=== PATIENT | male | born 1955 | race Caucasian/White ===

== ENCOUNTER 2018-06-02 16:33 | Observation (INO) | payer OTHER ==
--- NOTE | 2018-06-02 18:24 | ER ---
Nurse's Notes [facility] Name: Meet Epperson Age: 62 yrs Sex: Male : 1955 Arrival Date: 06/02/2018 Time: 16:37 Bed 27 Private MD: None, None Diagnosis: Essential (primary) hypertension;Headache Presentation: 06/02 17:17 Presenting complaint: Patient states: Headache for 2 weeks. Pt state "I checked my aa5 blood pressure at [facility] today and it was 211/120". Pt also reports nausea, dizziness, and blurry vision. Transition of care: patient was not received from another setting of care. Onset of symptoms was April 2018. Risk Assessment: Do you want to hurt yourself or someone else? Patient reports no desire to harm self or others. Initial Sepsis Screen: Does the patient meet any 2 criteria? No. Patient's initial sepsis screen is negative. Does the patient have a suspected source of infection? No. Patient's initial sepsis screen is negative. Care prior to arrival: None. 17:17 Method Of Arrival: Ambulatory aa5 17:17 Acuity: WAYNE 3 aa5 Triage Assessment: 20:31 Headache History: The patient has had previous headaches and this one is similar to mg2 previous episodes. General: Appears in no apparent distress. comfortable, Behavior is calm, cooperative. Pain: Also complains of no other associated symptoms. Pain: Complains of pain in head and chest. Historical: - Allergies: 17:19 Sulfa (Sulfonamide Antibiotics); aa5 - Home Meds: 17:19 Simvastatin Oral [Active]; diclofenac oral oral [Active]; Tramadol Oral [Active]; aa5 - PMHx: 17:19 Arthritis; Pneumonia; aa5 - PSHx: 17:19 left knee; aa5 - Immunization history:: Flu vaccine is up to date. - Social history:: Smoking status: Patient/guardian denies using tobacco. - Ebola Screening: : No symptoms or risks identified at this time. Screenin:30 Abuse screen: Denies threats or abuse. Denies injuries from another. Nutritional mg2 screening: No deficits noted. Tuberculosis screening: No symptoms or risk factors identified. Fall Risk IV access (20 points). Assessment: 20:28 General: Appears in no apparent distress. comfortable, Behavior is calm, cooperative. mg2 Pain: Complains of pain in head Pain does not radiate. Pain currently is 3 out of 10 on a pain scale. Quality of pain is described as aching, Pain began gradually. Neuro: Level of Consciousness is awake, alert, obeys commands, Oriented to person, place, time, situation, Reports headache. Cardiovascular: Capillary refill < 3 seconds Patient's skin is warm and dry. Respiratory: Airway is patent Respiratory effort is even, unlabored, Respiratory pattern is regular, symmetrical. GI: No signs and/or symptoms were reported involving the gastrointestinal system. : No signs and/or symptoms were reported regarding the genitourinary system. EENT: Reports blurred vision. Derm: Skin is intact, is healthy with good turgor, Skin is pink, warm \\T\\ dry. normal. Musculoskeletal: Circulation, motion, and sensation intact. Capillary refill < 3 seconds. 20:49 Reassessment: report called to Alicia MASON for room 407. bb Vital Signs: 17:20 BP 173 / 116; Pulse 77; Resp 18 S; Temp 97.8(TE); Pulse Ox 97% on R/A; Weight 96.16 kg aa5 (R); Height 6 ft. 2 in. (187.96 cm) (R); Pain 10/10; 17:47 BP 162 / 108; Pulse 69; Resp 18; Pulse Ox 98% on R/A; Pain 8/10; mg2 20:31 BP 144 / 96; Pulse 87; Resp 18; Temp 98; Pulse Ox 99% on R/A; Pain 2/10; mg2 21:10 BP 129 / 80; Pulse 82; Resp 18; Pulse Ox 100% on R/A; Pain 0/10; mg2 17:20 Body Mass Index 27.22 (96.16 kg, 187.96 cm) aa5 ED Course: 16:37 Patient arrived in ED. mr 16:38 None, None is Private Physician. mr 17:10 Arm band placed on. aa5 17:18 Triage completed. aa5 17:23 Pritesh Brown MD is Attending Physician. saran 17:34 Yann Olson, MARLON is Primary Nurse. mg2 18:21 CT Head Brain wo Cont In Process Unspecified. EDMS 18:21 Sarah Coe MD is Hospitalizing Provider. saran 19:09 XRAY Chest (1 view) In Process Unspecified. EDMS 20:30 Patient has correct armband on for positive identification. Bed in low position. Call mg2 light in reach. Side rails up X 1. air sampling and monitoring on. Pulse ox on. NIBP on. Door closed. 20:30 No provider procedures requiring assistance completed. Inserted saline lock: 20 gauge mg2 in right antecubital area, using aseptic technique. Blood collected. 20:50 Patient admitted, IV remains in place. bb Administered Medications: 19:40 Drug: Norvasc 10 mg Route: PO; mg2 20:40 Follow up: Response: No adverse reaction; Blood pressure is lowered mg2 19:40 Drug: fentaNYL (PF) 25 mcg Route: IVP; Site: right antecubital; mg2 20:40 Follow up: Response: No adverse reaction; Marked relief of symptoms mg2 19:41 Drug: NS 0.9% 1000 ml Route: IV; Rate: 75 ml/hr; Site: right antecubital; mg2 21:00 Follow up: Response: No adverse reaction; IV Status: Infusion continued upon admission mg2 19:41 Drug: Enalaprilat 2.5 mg Route: IV; Rate: per protocol; Site: right antecubital; mg2 20:40 Follow up: Response: No adverse reaction; Blood pressure is lowered; IV Status: mg2 Completed infusion 19:41 Drug: Zofran 4 mg Route: IVP; Site: right antecubital; mg2 21:10 Follow up: Response: No adverse reaction; Marked relief of symptoms mg2 20:21 Drug: Aspirin 81 mg Route: PO; mg2 0204 00:06 Follow up: Response: No adverse reaction mg2 03 20:21 Drug: fentaNYL (PF) 25 mcg Route: IVP; Site: right antecubital; mg2 21:10 Follow up: Response: No adverse reaction; Pain is decreased mg2 20:21 Drug: hydrALAZINE 5 mg Route: IV; Rate: per protocol; Site: right antecubital; mg2 21:10 Follow up: Response: No adverse reaction; Blood pressure is lowered; IV Status: mg2 Completed infusion 20:21 Drug: hydrALAZINE 10 mg Route: PO; mg2 21:10 Follow up: Response: No adverse reaction; Blood pressure is lowered mg2 20:22 Drug: Lisinopril 10 mg Route: PO; mg2 21:10 Follow up: Response: No adverse reaction; Blood pressure is lowered mg2 Outcome: 18:22 Decision to Hospitalize by Provider. saran 20:49 Admitted to Tele accompanied by tech, via wheelchair, room 407, with chart, Report bb called to Alicia MASON 20:49 Condition: stable 20:49 Instructed on the need for admit. 21:12 Patient left the ED. mg2 Signatures: Dispatcher [employer] Pritesh Khan MD MD cha Rivera, Roslyn mr Shayla Vasquez, RN RN bb Shelly Nieves, MARLON RN aa5 Yann Olson RN RN mg2
--- NOTE | 2018-06-02 18:24 | EDPHYS ---
Physician Documentation [facility] Name: Meet Epperson Age: 62 yrs Sex: Male : 1955 Arrival Date: 06/02/2018 Time: 16:37 Bed 27 Private MD: None, None ED Physician Pritesh Brown HPI: 06/02 18:18 This 62 yrs old Male presents to ER via Ambulatory with complaints of High saran Blood Pressure, Headache, Vision Problem. 18:18 The patient has elevated blood pressure and discovered this at home. Onset: The saran symptoms/episode began/occurred 2 day(s) ago. Modifying factors: The symptoms are aggravated by. Associated signs and symptoms: Pertinent positives: headache. Severity of symptoms: At its worst the blood pressure was moderate. The patient has experienced similar episodes in the past, a few times. Historical: - Allergies: 17:19 Sulfa (Sulfonamide Antibiotics); aa5 - Home Meds: 17:19 Simvastatin Oral [Active]; diclofenac oral oral [Active]; Tramadol Oral [Active]; aa5 - PMHx: 17:19 Arthritis; Pneumonia; aa5 - PSHx: 17:19 left knee; aa5 - Immunization history:: Flu vaccine is up to date. - Social history:: Smoking status: Patient/guardian denies using tobacco. - Ebola Screening: : No symptoms or risks identified at this time. ROS: 18:20 Constitutional: Negative for fever, chills, and weight loss, Eyes: Negative for injury, saran pain, redness, and discharge, ENT: Negative for injury, pain, and discharge, Neck: Negative for injury, pain, and swelling, Cardiovascular: Negative for chest pain, palpitations, and edema, Respiratory: Negative for shortness of breath, cough, wheezing, and pleuritic chest pain, Abdomen/GI: Negative for abdominal pain, nausea, vomiting, diarrhea, and constipation, Back: Negative for injury and pain, : Negative for injury, bleeding, discharge, and swelling, MS/Extremity: Negative for injury and deformity, Skin: Negative for injury, rash, and discoloration, Psych: Negative for depression, anxiety, suicide ideation, homicidal ideation, and hallucinations, Allergy/Immunology: Negative for hives, rash, and allergies, Endocrine: Negative for neck swelling, polydipsia, polyuria, polyphagia, and marked weight changes, Hematologic/Lymphatic: Negative for swollen nodes, abnormal bleeding, and unusual bruising. 18:20 Neuro: Positive for headache. Exam: 18:20 Constitutional: This is a well developed, well nourished patient who is awake, alert, saran and in no acute distress. Head/Face: Normocephalic, atraumatic. Eyes: Pupils equal round and reactive to light, extra-ocular motions intact. Lids and lashes normal. Conjunctiva and sclera are non-icteric and not injected. Cornea within normal limits. Periorbital areas with no swelling, redness, or edema. ENT: Nares patent. No nasal discharge, no septal abnormalities noted. Tympanic membranes are normal and external auditory canals are clear. Oropharynx with no redness, swelling, or masses, exudates, or evidence of obstruction, uvula midline. Mucous membranes moist. Neck: Trachea midline, no thyromegaly or masses palpated, and no cervical lymphadenopathy. Supple, full range of motion without nuchal rigidity, or vertebral point tenderness. No Meningismus. Chest/axilla: Normal chest wall appearance and motion. Nontender with no deformity. No lesions are appreciated. Cardiovascular: Regular rate and rhythm with a normal S1 and S2. No gallops, murmurs, or rubs. Normal PMI, no JVD. No pulse deficits. Respiratory: Lungs have equal breath sounds bilaterally, clear to auscultation and percussion. No rales, rhonchi or wheezes noted. No increased work of breathing, no retractions or nasal flaring. Abdomen/GI: Soft, non-tender, with normal bowel sounds. No distension or tympany. No guarding or rebound. No evidence of tenderness throughout. Back: No spinal tenderness. No costovertebral tenderness. Full range of motion. Male : Normal genitalia with no discharge or lesions. Skin: Warm, dry with normal turgor. Normal color with no rashes, no lesions, and no evidence of cellulitis. MS/ Extremity: Pulses equal, no cyanosis. Neurovascular intact. Full, normal range of motion. Neuro: Awake and alert, GCS 15, oriented to person, place, time, and situation. Cranial nerves II-XII grossly intact. Motor strength 5/5 in all extremities. Sensory grossly intact. Cerebellar exam normal. Normal gait. Psych: Awake, alert, with orientation to person, place and time. Behavior, mood, and affect are within normal limits. 18:20 Neck: External neck: is normal, no acute changes. saran 18:20 Musculoskeletal/extremity: DVT Exam: No signs of deep vein thrombosis. no pain, no swelling, no tenderness, negative Homans' sign noted on exam, no appreciated bluish discoloration, no erythema, no increased warmth. Vital Signs: 17:20 BP 173 / 116; Pulse 77; Resp 18 S; Temp 97.8(TE); Pulse Ox 97% on R/A; Weight 96.16 kg aa5 (R); Height 6 ft. 2 in. (187.96 cm) (R); Pain 10/10; 17:47 BP 162 / 108; Pulse 69; Resp 18; Pulse Ox 98% on R/A; Pain 8/10; mg2 20:31 BP 144 / 96; Pulse 87; Resp 18; Temp 98; Pulse Ox 99% on R/A; Pain 2/10; mg2 21:10 BP 129 / 80; Pulse 82; Resp 18; Pulse Ox 100% on R/A; Pain 0/10; mg2 17:20 Body Mass Index 27.22 (96.16 kg, 187.96 cm) aa5 MDM: 17:23 Patient medically screened. [facility] 18:25 Data reviewed: vital signs, nurses notes, lab test result(s), EKG, radiologic studies, [facility] CT scan, plain films. 06/02 17:50 Order name: Basic Metabolic Panel; Complete Time: 19:52 [facility] 06/02 17:50 Order name: CBC with Diff; Complete Time: 19:43 [facility] 06/02 17:50 Order name: LFT's; Complete Time: 19:52 [facility] 06/02 17:50 Order name: Magnesium; Complete Time: 19:52 [facility] 06/02 17:50 Order name: NT PRO-BNP; Complete Time: 19:52 [facility] 06/02 17:50 Order name: PT-INR; Complete Time: 19:43 [facility] 06/02 17:50 Order name: Troponin (emerg Dept Use Only); Complete Time: 19:52 [facility] 06/02 17:50 Order name: Lipase; Complete Time: 19:52 [facility] 06/02 17:50 Order name: Urine Culture [facility] 06/02 20:13 Order name: CBC with Automated Diff EDMS 06/02 20:13 Order name: CBC with Automated Diff [facility] 06/02 20:13 Order name: Comprehensive Metabolic Panel [facility] 06/02 20:13 Order name: Comprehensive Metabolic Panel [facility] 06/02 20:47 Order name: Urine Dipstick--Ancillary (enter results) [facility] 06/02 17:50 Order name: XRAY Chest (1 view) [facility] 06/02 17:50 Order name: EKG; Complete Time: 17:51 [facility] 06/02 17:50 Order name: Cardiac monitoring; Complete Time: 19:41 [facility] 06/02 17:50 Order name: CT Head Brain wo Cont; Complete Time: 18:51 [facility] 06/02 20:13 Order name: CONS Pharmacy Consult [facility] 06/02 20:13 Order name: Heart Healthy [facility] 06/02 17:50 Order name: EKG - Nurse/Tech; Complete Time: 19:42 [facility] 06/02 17:50 Order name: IV Saline Lock; Complete Time: 19:42 [facility] 06/02 17:50 Order name: Labs collected and sent; Complete Time: 19:42 [facility] 06/02 17:50 Order name: O2 Per Protocol; Complete Time: 19:42 [facility] 06/02 17:50 Order name: O2 Sat Monitoring; Complete Time: 19:42 [facility] 06/02 17:50 Order name: Urine Dipstick-Ancillary (obtain specimen); Complete Time: 20:22 [facility] Administered Medications: 19:40 Drug: Norvasc 10 mg Route: PO; mg2 20:40 Follow up: Response: No adverse reaction; Blood pressure is lowered mg2 19:40 Drug: fentaNYL (PF) 25 mcg Route: IVP; Site: right antecubital; mg2 20:40 Follow up: Response: No adverse reaction; Marked relief of symptoms mg2 19:41 Drug: NS 0.9% 1000 ml Route: IV; Rate: 75 ml/hr; Site: right antecubital; mg2 21:00 Follow up: Response: No adverse reaction; IV Status: Infusion continued upon admission mg2 19:41 Drug: Enalaprilat 2.5 mg Route: IV; Rate: per protocol; Site: right antecubital; mg2 20:40 Follow up: Response: No adverse reaction; Blood pressure is lowered; IV Status: mg2 Completed infusion 19:41 Drug: Zofran 4 mg Route: IVP; Site: right antecubital; mg2 21:10 Follow up: Response: No adverse reaction; Marked relief of symptoms mg2 20:21 Drug: Aspirin 81 mg Route: PO; mg2 06/03 00:06 Follow up: Response: No adverse reaction mg2 06/02 20:21 Drug: fentaNYL (PF) 25 mcg Route: IVP; Site: right antecubital; mg2 21:10 Follow up: Response: No adverse reaction; Pain is decreased mg2 20:21 Drug: hydrALAZINE 5 mg Route: IV; Rate: per protocol; Site: right antecubital; mg2 21:10 Follow up: Response: No adverse reaction; Blood pressure is lowered; IV Status: mg2 Completed infusion 20:21 Drug: hydrALAZINE 10 mg Route: PO; mg2 21:10 Follow up: Response: No adverse reaction; Blood pressure is lowered mg2 20:22 Drug: Lisinopril 10 mg Route: PO; mg2 21:10 Follow up: Response: No adverse reaction; Blood pressure is lowered mg2 Disposition: 06/02/18 18:22 Hospitalization ordered by Sarah Coe for Observation. Preliminary diagnosis are Essential (primary) hypertension, Headache. - Bed requested for Telemetry/MedSurg (observation). - Status is Observation. mg2 - Condition is Stable. - Problem is new. - Symptoms have improved. UTI on Admission? No Signatures: Dispatcher [employer] EDMS Ashlyn Escobar RN RN mw Anderson, Corey, MD MD cha Calderon, Audri, RN RN aa5 Evelio Matamoros PA PA [id number] Yann Olson RN RN mg2 Corrections: (The following items were deleted from the chart) 20:22 18:22 Hospitalization Ordered by Sarah Coe MD for Observation. Preliminary mw diagnosis is Essential (primary) hypertension; Headache. Bed requested for Telemetry/MedSurg (observation). Status is Observation. Condition is Stable. Problem is new. Symptoms have improved. UTI on Admission? No. saran 21:12 20:22 06/02/2018 18:22 Hospitalization Ordered by Sarah Coe MD for Observation. mg2 Preliminary diagnosis is Essential (primary) hypertension; Headache. Bed requested for Telemetry/MedSurg (observation). Status is Observation. Condition is Stable. Problem is new. Symptoms have improved. UTI on Admission? No. duy
--- NOTE | 2018-06-02 18:27 | RAD REPORT ---
EXAM DESCRIPTION: CT - Head Brain Wo Cont - 06/02/2018 6:21 pm CLINICAL HISTORY: Dizziness;Headache Hypertension COMPARISON: No comparisons TECHNIQUE: All CT scans are performed using dose optimization technique as appropriate and may inclu de automated exposure control or mA/KV adjustment according to patient size. FINDINGS: No intracranial hemorrhage, hydrocephalus or extra-axial fluid collection.No areas of brai n edema or evidence of midline shift. The paranasal sinuses and mastoids are clear. The calvarium is intact. IMPRESSION: No acute intracranial abnormality.
[2018-06-02] MEDS ORDERED: FENTANYL CITR 100 MCG/2 ML ONE (18:44)
[2018-06-02] MEDS ORDERED: ONDANSETRON 4 MG/2 ML VIAL ONE (18:44)
[2018-06-02] MEDS ORDERED: AMLODIPINE 5 MG TAB ONE (18:44)
[2018-06-02] MEDS ORDERED: NA CHLORIDE 0.9% 1,000 ML ONE (18:45)
[2018-06-02] MEDS ORDERED: ENALAPRILAT 1.25 MG/ML VIAL IV ONE (18:45)
[2018-06-02 19:26] LABS: Absolute Lymphocytes (CBC) 2.2 K/uL (0.7-4.9); Absolute Monocytes 0.5 K/uL (0.1-1.3); Absolute Neutrophil 2.3 K/uL (1.8-8.0); Basophils % 0.9 % (0-1.3); Eosinophils % 3.6 % (0-4.4); Hematocrit 45.5 % (39.6-49.0); Lymphocytes % 42.1 % (15.3-44.8); MPV 9.6 fL (7.6-11.3); Protime INR 1.02; RBC Red Blood Cell Count 5.04 M/uL (4.33-5.43)
[2018-06-02 19:47] LABS: ALT/SGPT 24 U/L (12-78); AST/SGOT 15 U/L (15-37); Albumin 4.2 g/dL (3.4-5.0); Alkaline Phosphatase 63 U/L (45-117); BUN Blood Urea Nitrogen 10 mg/dL (7-18); Bicarbonate 29 mmol/L (21-32); Bilirubin Direct 0.2 mg/dL (0-0.2); Bilirubin Total 0.8 mg/dL (0.2-1.0); Glucose Level 87 mg/dL (74-106); Lipase 354 U/L (73-393); Magnesium 2.3 mg/dL (1.8-2.4); NT PRO-BNP 29 pg/mL (<125); Potassium 4.1 mmol/L (3.5-5.1); Protein, Total 7.5 g/dL (6.4-8.2); Sodium Level 139 mmol/L (136-145); Troponin (Emerg Dept Use Only) < 0.02 ng/mL (0.0-0.045)
--- NOTE | 2018-06-02 20:00 | RAD REPORT ---
EXAM DESCRIPTION: RAD - Chest Single View - 06/02/2018 7:08 pm CLINICAL HISTORY: COUGH Chest pain. COMPARISON: No comparisons FINDINGS: Portable technique limits examination quality. Mild interstitial pulmonary edema suspected. The heart is upper limit of normal in size. No displaced fractures.
[2018-06-02] MEDS ORDERED: ONDANSETRON 4 MG/2 ML VIAL IV PRN (20:09)
[2018-06-02] MEDS ORDERED: ACETAMINOPHEN 500 MG TAB PO PRN (20:09)
[2018-06-02] MEDS ORDERED: AMLODIPINE 5 MG TAB PO ONE (20:11)
[2018-06-02] MEDS ORDERED: HYDRALAZINE HCL 20 MG/ML VIAL ONE (20:18)
[2018-06-02] MEDS ORDERED: LISINOPRIL 10 MG TAB ONE (20:19)
[2018-06-02] MEDS ORDERED: ASPIRIN EC 81 MG TAB PO ONE (20:19)
[2018-06-02] MEDS ORDERED: HYDRALAZINE HCL 10 MG TABLET ONE (20:19)
[2018-06-02] MEDS ORDERED: LOSARTAN POTASSIUM 50 MG TABLET PO SCH (21:00)
[2018-06-02] MEDS: NA CHLORIDE 0.9% 1,000 ML IV SCH (21:00)
[2018-06-02 21:38] LABS: Urine Blood NEGATIVE (NEG); Urine Glucose NEGATIVE (NEG); Urine Protein NEGATIVE (NEG)
[2018-06-02 21:40] VITALS: BMI 27.2
[2018-06-02] MEDS ORDERED: LOSARTAN POTASSIUM 50 MG TABLET PO ONE (22:00)
[2018-06-02] MEDS ORDERED: clonazePAM 1 MG TAB PO ONE (22:35)
[2018-06-03] MEDS: MORPHINE 4 MG/ML SYR IV PRN ×2 (00:23→04:19)
[2018-06-03] MEDS ORDERED: METOPROLOL TAR 25 MG TAB PO SCH (06:00)
[2018-06-03 06:23] LABS: Absolute Monocytes 0.4 K/uL (0.1-1.3); Absolute Neutrophil 1.5 K/uL (1.8-8.0); Basophils % 0.6 % (0-1.3); Eosinophils % 3.9 % (0-4.4); Hematocrit 41.2 % (39.6-49.0); Lymphocytes % 48.7 % (15.3-44.8); MPV 9.6 fL (7.6-11.3); Monocytes % 9.8 % (3.3-12.3); RBC Red Blood Cell Count 4.59 M/uL (4.33-5.43)
[2018-06-03 06:31] LABS: Albumin 3.6 g/dL (3.4-5.0); Bilirubin Total 0.6 mg/dL (0.2-1.0); Potassium 3.9 mmol/L (3.5-5.1); Protein, Total 6.3 g/dL (6.4-8.2)
[2018-06-03] MEDS ORDERED: clonazePAM 1 MG TAB PO PRN (06:55)
[2018-06-03 07:13] LABS: Platelet Estimate ADEQ
[2018-06-03 07:14] LABS: Blood Morphology Comment NOT SEEN (NOT SEEN)
--- NOTE | 2018-06-03 07:23 | EKG ---
Test Date: 2018-06-02 Test Time: 17:43:53 Fixed Income Portfolio Manager: MEASUREMENT RESULTS: Intervals: Rate: 68 MN: 154 QRSD: 84 QT: 386 QTc: 410 Mcgrath: P: 46 MN: 154 QRS: 21 T: 85 INTERPRETIVE STATEMENTS: Normal sinus rhythm cannot rule out anterior infarct, age undetermined Abnormal ECG No previous ECG available for comparison Electronically Signed On 06-03-18 07:16:51 SUPERVISOR MACHINE SETTER by Adelfo De La Torre
[2018-06-03 07:33] LABS: Thyroid Stimulating Hormone 3.29 uIU/mL (0.360-3.740)
[2018-06-03] MEDS ORDERED: TRAMADOL HCL 50 MG TAB PO PRN (08:17)
--- NOTE | 2018-06-03 08:42 | P.HP ---
Certification for Inpatient Patient admitted to: Observation With expected LOS: <2 Midnights Patient will require the following post-hospital care: None Practitioner: I am a practitioner with admitting privileges, knowledge of patient current condition, hospital course, and medical plan of care. Services: Services provided to patient in accordance with Admission requirements found in Title 42 Section 412.3 of the Code of Federal Regulations Patient History Date of Service: 06/02/18 Reason for admission: hypertensive urgency versus hypertensive emergency History of Present Illness: Patient is a 62-year-old gentleman who has a history of anxiety disorder. He recently moved to the area from [place] where he works with [employer]. He states he normally gets his physical yearly, and this year his blood pressure was 140s over 80s. Since he has moved hear he has not been able to get any of his anxiety medication. He was having headache for the last couple days and it got much worse. He went to the hospital for further evaluation. In the emergency room , he was found to have a blood pressure of 220/120. His other labs did not look abnormal. He had a headache but no abnormal visual issues nor did he have any paresthesias or weakness. His renal function and his cardiac status was stable. He was admitted to the hospital for treatment of his hypertension. He normally takes anxiety medication regularly. He has not been taking this at all over the last few weeks. His blood pressure may be elevated secondary to anxiety issues. Will also rule out secondary causes of hypertension. As long as his renal function and neurologic status and cardiac status are stable he may be able to go home as long as we have his blood pressure well controlled. Allergies Sulfa (Sulfonamide Antibiotics) Allergy (Verified 06/02/18 21:37) Itching/Hives/Rash Home Medications: Diclofenac Epolamine [Flector] 1 appl TOP DAILY PRN 06/02/18 Diclofenac Sodium 1 appl TOP DAILY PRN 06/02/18 Fluticasone [Flonase 50mcg Nasal [place]] 2 sprays NS DAILY PRN 06/02/18 Hydrocodone Bit/Acetaminophen [Hydrocodon-Acetaminophn 10-325] 1 tab PO Q4H PRN 06/02/18 Simvastatin 20 mg PO BEDTIME 06/02/18 Tramadol HCl [Ultram] 50 mg PO Q4HR PRN 06/02/18 clonazePAM [Clonazepam] 1 mg PO TID PRN 06/02/18 diazePAM [Diazepam] 10 mg PO Q8HR PRN 06/02/18 - Past Medical/Surgical History Has patient received pneumonia vaccine in the past: No Diabetic: No -: hyperlipidemia -: arthritis -: chronic pain -: anxiety -: left knee surgery - Family History Father Medical History: Cancer Mother Medical History: Other (see notes) Notes: alzheimers - Social History Smoking Status: Never smoker Alcohol use: Yes CD- Drugs: No Caffeine use: Yes Place of Residence: Home Review of Systems 10-point ROS is otherwise unremarkable Physical Examination - Vital Signs Temperature: 98.5 F Blood Pressure: 99/61 Pulse: 68 Respirations: 18 Pulse Ox (%): 95 - Physical Exam General: Alert, In no apparent distress, Oriented x3 HEENT: Atraumatic, PERRLA, Mucous membr. moist/pink, EOMI, Sclerae nonicteric Neck: Supple, 2+ carotid pulse no bruit, No LAD, Without JVD or thyroid abnormality Respiratory: Clear to auscultation bilaterally, Normal air movement Cardiovascular: Regular rate/rhythm, Normal S1 S2 Gastrointestinal: Normal bowel sounds, Soft and benign, Non-distended, No tenderness Musculoskeletal: No tenderness Integumentary: No rashes Neurological: Normal gait, Normal speech, Normal strength at 5/5 x4 extr, Normal tone, Sensation intact, Cranial nerves 3-12 intact, Normal affect Lymphatics: No axilla or inguinal lymphadenopathy - Studies Laboratory Data (last 24 hrs) 06/02/18 19:00: PT 12.0, INR 1.02 06/02/18 19:00: WBC 5.2, Hgb 15.3, Hct 45.5, Plt Count 217 06/02/18 19:00: Sodium 139, Potassium 4.1, BUN 10, Creatinine 0.84, Glucose 87, Magnesium 2.3, Total Bilirubin 0.8, AST 15, ALT 24, Alkaline Phosphatase 63, Lipase 354 Assessment & Plan - Problems (Diagnosis) (1) Malignant hypertension Current Visit: Yes Status: Acute (2) History of anxiety disorder Current Visit: Yes Status: Acute (3) Secondary hypertension Current Visit: Yes Status: Acute - Plan Plan: 1. Echocardiogram 2. Renal doppler 3. workup for secondary hypertension 4. monitor vital signs closely. Maybe with resuming anxiolytics his blood pressure was stabilized. If it does not band will need to figure out what could be another etiology of his hypertension 5. GI and DVT prophylaxis - Advance Directives Does patient have a Living Will: No Does patient have a Durable POA for Healthcare: No - Code Status/Comfort Care Code Status Assessed: Yes Code Status: Full Code Critical Care: No Time Spent Managing PTS Care (In Minutes): 50
[2018-06-03] MEDS ORDERED: LOSARTAN POTASSIUM 50 MG TABLET PO SCH (09:00)
[2018-06-03] MEDS ORDERED: AMLODIPINE 10 MG TAB PO SCH (09:00)
[2018-06-03] MEDS: NA CHLORIDE 0.9% 1,000 ML IV SCH (10:20)
[2018-06-03 10:32] VITALS: O2SAT 96
--- NOTE | 2018-06-03 11:19 | RAD REPORT ---
EXAM DESCRIPTION: USCarotid Artery Bilateral06/03/2018 10:54 am CLINICAL HISTORY: Syncope/hypertension COMPARISON: None FINDINGS: The velocity of the right internal carotid artery equals 74 cm/sec. The right ICA/CCA rati o .9 The velocity of the left internal carotid artery equals 77 cm/sec. The left ICA/CCA ratio .8 Mild plaque is present within the carotid arteries. The vertebral arteries demonstrate antegrade flow IMPRESSION: Mild plaque within the carotid arteries without evidence of a hemodynamically significan t stenosis NASCET criteria used. Mild 0-49% stenosis Moderate 50-69% stenosis Severe 70-99% stenosis
[2018-06-03 12:29] VITALS: BP 120/73; TEMP 98.6
--- NOTE | 2018-06-03 13:09 | ECHO ---
HEIGHT: 6 ft 2 in WEIGHT: 212 lb 0 oz DATE OF STUDY: 06/03/[address]: Sarah Coe MD 2-DIMENSIONAL: YES M.MODE: YES DOPPLER: YES COLOR FLOW: YES TDS: NO PORTABLE: NO DEFINITY: NO BUBBLE STUDY: NO DIAGNOSIS: UNCONTROLLED HYPERTENSION CARDIAC HISTORY: CATHERIZATION: NO SURGERY: NO PROSTHETIC VALVE: NO PACEMAKER: NO MEASUREMENTS (cm) DIASTOLIC (NORMALS) SYSTOLIC (NORMALS) IVSd 1.1 (0.6-1.2) LA Diam 3.4 (1.9-4.0) LVEF 64% LVIDd 5.1 (3.5-5.7) LVIDs 3.3 (2.0-3.5) %FS 35% LVPWd 1.0 (0.6-1.2) Ao Diam 3.6 (2.0-3.7) 2 DIMENSIONAL ASSESSMENT: RIGHT ATRIUM: NORMAL LEFT ATRIUM: NORMAL RIGHT VENTRICLE: NORMAL LEFT VENTRICLE: NORMAL TRICUSPID VALVE: NORMAL MITRAL VALVE: NORMAL PULMONIC VALVE: NORMAL AORTIC VALVE: NORMAL PERICARDIAL EFFUSION: NONE AORTIC ROOT: NORMAL LEFT VENTRICULAR WALL MOTION: NORMAL. DOPPLER/COLOR FLOW: MILD TRICUSPID REGURGITATION. ESTIMATED RIGHT VENTRICULAR SYSTOLIC PRESSURE 38 MMHG. MILD PULMONARY HYPERTENSION. COMMENTS: NORMAL 2D ECHOCARDIOGRAM WITH DOPPLER. MILD TRICUSPID REGURGITATION. MILD PULMONARY HYPERTENSION. TECHNOLOGIST: JAILENE BURROWS RDCS
--- NOTE | 2018-06-03 17:37 | P.DS ---
Admission Date: 06/02/18 Discharge Date: 06/03/18 Primary Care Provider: none Disposition: ROUTINE DISCHARGE Discharge Condition: GOOD Reason for Admission: hypertensive urgency versus hypertensive emergency Procedures: Medical problem list: Hypertension Hyperlipidemia Chronic pain Anxiety Brief History of Present Illness: 62-year-old male presented with headache. Patient found to have elevated blood pressure. Patient was admitted for treatment. Hospital Course: Patient presented with elevated blood pressure. Patient found to have hypertension. Patient treated. At discharge he will continue with losartan 25 mg daily. Recommend to maintain blood pressures less 150/80. Further adjustment may be required. Patient to follow up with a PCP to continue his care. Patient with history of hyperlipidemia. Patient will continue with Zocor 20 mg daily. Patient with anxiety. Patient may continue with Klonopin 1 mg 3 times a day as needed for anxiety. Recommend to follow up with his PCP to further address. Patient may benefit with SSRI in the future. Patient with chronic pain. Patient may continue with tramadol 50 mg 3 times a day as needed for pain. Recommend to discontinue nonsteroidal anti- inflammatories and hydrocodone. Vital Signs/Physical Exam: Temp Pulse Resp BP Pulse Ox 98.6 F 74 18 120/73 94 06/03/18 12:00 06/03/18 12:00 06/03/18 12:00 06/03/18 12:00 06/03/18 12:00 General: Alert, In no apparent distress, Oriented x3, Cooperative HEENT: Atraumatic Neck: Supple Respiratory: Clear to auscultation bilaterally, Normal air movement Cardiovascular: Normal pulses, Regular rate/rhythm Gastrointestinal: Normal bowel sounds, Soft and benign, Non-distended, No tenderness, No masses, No rebound, No guarding Musculoskeletal: No erythema, No tenderness, No warmth Integumentary: No tenderness/swelling, No erythema, No warmth, No cyanosis Neurological: Normal speech, Normal strength at 5/5 x4 extr, Normal tone Laboratory Data at Discharge: WBC 4.2 K/uL (4.3-10.9) L D 06/03/18 05:34 Hgb 14.3 g/dL (13.6-17.9) 06/03/18 05:34 Hct 41.2 % (39.6-49.0) 06/03/18 05:34 Plt Count 211 K/uL (152-406) 06/03/18 05:34 PT 12.0 SECONDS (9.5-12.5) 06/02/18 19:00 INR 1.02 06/02/18 19:00 Sodium 141 mmol/L (136-145) 06/03/18 05:34 Potassium 3.9 mmol/L (3.5-5.1) 06/03/18 05:34 BUN 12 mg/dL (7-18) 06/03/18 05:34 Creatinine 0.88 mg/dL (0.55-1.3) 06/03/18 05:34 Glucose 124 mg/dL (74-106) H 06/03/18 05:34 Magnesium 2.3 mg/dL (1.8-2.4) 06/02/18 19:00 Total Bilirubin 0.6 mg/dL (0.2-1.0) 06/03/18 05:34 AST 7 U/L (15-37) L 06/03/18 05:34 ALT 21 U/L (12-78) 06/03/18 05:34 Alkaline Phosphatase 52 U/L (45-117) 06/03/18 05:34 Triglycerides 263 mg/dL (<150) H 06/03/18 06:53 Cholesterol 140 mg/dL (<200) 06/03/18 06:53 HDL Cholesterol 28 mg/dL (40-60) L 06/03/18 06:53 Cholesterol/HDL Ratio 5.00 06/03/18 06:53 Lipase 354 U/L (73-393) 06/02/18 19:00 Home Medications: Fluticasone [Flonase 50MCG Nasal Bigelow*] 2 sprays NS DAILY PRN 06/02/18 Hydrocodone Bit/Acetaminophen [Hydrocodon-Acetaminophn 10-325] 1 tab PO Q4H PRN 06/02/18 Tramadol HCl [Ultram] 50 mg PO Q4HR PRN 06/02/18 Losartan Potassium [Cozaar*] 25 mg PO DAILY #30 tablet 06/03/18 Simvastatin 20 mg PO BEDTIME #30 tablet 06/03/18 clonazePAM [Clonazepam] 1 mg PO TID PRN #10 tablet 06/03/18 New Medications: clonazePAM [Clonazepam] 1 mg PO TID PRN #10 tablet PRN Reason: Anxiety Losartan Potassium [Cozaar*] 25 mg PO DAILY #30 tablet Simvastatin 20 mg PO BEDTIME #30 tablet Patient Discharge Instructions: 1. Patient will need to establish care with a local PCP to follow up this hospitalization. 2. Patient presented with elevated blood pressure. Patient found to have hypertension. Patient treated. At discharge he will continue with losartan 25 mg daily. Recommend to maintain blood pressures less 150/80. Further adjustment may be required. Patient to follow up with a PCP to continue his care. 3. Patient with history of hyperlipidemia. Patient will continue with Zocor 20 mg daily. 4. Patient with anxiety. Patient may continue with Klonopin 1 mg 3 times a day as needed for anxiety. Recommend to follow up with his PCP to further address. Patient may benefit with SSRI in the future. 5. Patient with chronic pain. Patient may continue with tramadol 50 mg 3 times a day as needed for pain. Recommend to discontinue nonsteroidal anti-inflammatories and hydrocodone. Diet: AHA Activity: Ad shantell Time spent managing pt's care (in minutes): 55
== END 2018-06-03 14:27 | disposition home or self-care (01) ==
LOC: ER 16:33 → ERHOLD 20:29 → 4TH 20:51
PROVIDERS: ADMIT Hospitalist; ATTEND Hospitalist
DX: I10 Essential (primary) hypertension (principal); E78.5 Hyperlipidemia, unspecified; F41.9 Anxiety disorder, unspecified; G89.29 Other chronic pain; Z88.2 Allergy status to sulfonamides
CPT/HCPCS: 36415; 70450; 71045; 80048; 80053; 80061; 80076; 81003; 82088; 82533; 83690; 83735; 83880; 84244; 84439; 84443; 84484; 85025; 85610; 93005; 93306; 93880; 96365; 96368; 96375; 99285; G0378; J0360; J2405; J3010; J7030

== ENCOUNTER → 2020-10-05 | Day surgery (SDC) | payer OTHER ==
[~2020-10-05] MED LIST: BUPIVACAINE 0.25% PF 30 ML VIAL ONE; CEFAZOLIN/SWI 2gm 2 GM/20 ML SYR ONE; FENTANYL CITR 100 MCG/2 ML ONE; GLYCOPYRROLATE 0.2 MG/ML SYR ONE; HYDROCODONE/APAP 7.5/325 MG TAB ONE; KETOROLAC 30 MG/ML INJ ONE; LIDOCAINE 2% MPF 5 ML VIAL ONE; MEPERIDINE HCL 25 MG/ML SYR ONE; MIDAZOLAM HCL 2 MG/2 ML INJ ONE; NEOSTIGMINE 1 MG/ML -5 ML ONE; ONDANSETRON 4 MG/2 ML VIAL ONE; ROCURONIUM 50 MG/5 ML VIAL IV ONE; Ringers Lactate 1,000 ML IV ONE; TAMSULOSIN 0.4 MG SR CAP ONE; dexAMETHasone 10 MG/ML VIAL ONE; propofoL 200 MG/20 ML VIAL IV ONE
--- NOTE | 2020-10-05 18:51 | P.OP ---
Preoperative diagnosis: Incarcerated LEFT inguinal hernia Postoperative diagnosis: Incarcerated LEFT inguinal hernia Primary procedure: Open Left Inguinal Hernia Repair with mesh Anesthesia: GETA + Local Estimated blood loss: <10cc Specimen: hernia sack, cord lipoma Findings: Incarcerated colon - no ischemia Complications: None Implants: Bard Large Perfix Plug and Patch Mesh Transferred to: Recovery Room Condition: Good
[2020-10-05 19:01] VITALS: TEMP 97.5
[2020-10-05] MEDS: HYDROMORPHONE HCL 1 MG/ML INJ ONE ×4 (19:05→19:45)
[2020-10-05 19:42] VITALS: O2SAT 96
--- NOTE | 2020-10-05 21:20 | OP ---
Date of Procedure: 10/05/2020 Surgeon: Corona Mccullough MD, Preoperative Diagnosis: Incarcerated left inguinal hernia. Postoperative Diagnosis: Incarcerated left inguinal hernia. Procedure Performed: Open left inguinal hernia repair with mesh. Anesthesia: General endotracheal plus local with 0.25% Marcaine. Estimated Blood Loss: Less than 10 mL. Specimens: 1.Hernia sac. 2.Cord lipoma. Findings: Incarcerated left inguinal hernia with colon entrapped in hernia. No ischemic changes of the colon. Significant scar tissue evident in the hernia sac. Disposition: The patient transferred recovery room in good condition. Implants: Bard large PerFix plug and patch hernia repair system. Complications: None. Procedure In Detail: After informed was obtained, the patient was brought to the operating room, pre pped and draped in the usual sterile fashion. After adequate anesthesia was achieved, an inguinal in cision over the left groin was incised down through subcutaneous tissue with a 15 blade down to subcu taneous tissues. Dissection continued with electrocautery to expose Camper's fat and Elvia's fascia , which were divided using electrocautery down to expose the external oblique aponeurosis. This was opened sharply with a 15 blade and opened in its entirety down to the deep and superficial inguinal r ings using Metzenbaum scissors protecting the ilioinguinal and iliohypogastric nerve throughout the e ntire procedure. After this was opened, the spermatic cord and structures were encircled. There was a quite large cord lipoma evident here. I encircled the spermatic cord and structures with a Penros e drain and then dissected the hernia sac, which was found to be emanating medially consistent with a n indirect inguinal hernia. The hernia sac was dissected free from the spermatic cord and structures , opened as there was incarcerated structure within this. I found that it was the segment of colon. At this point, I was able to mobilize this with gentle blunt dissection for the most part. I then b rought the colon, which was entrapped at the preperitoneal space, back into the surgical field and wa s able to separate the colon from the hernia sac with adhesiolysis. At this point, I placed a suture on a vessel, which was on the epiploic appendage, which was entrapped and scarred to the hernia sac and had some bleeding. The ligation suture was a 3-0 Vicryl suture and the colon was then returned b ack to the preperitoneal space in the normal anatomic position without any evidence of bleeding. The area was irrigated at this point and found to be clear. At this point, I sized a large Bard PerFix hernia plug and patch system and brought in the large hernia plug. Using a 2-0 PDS suture, I parachu corona in the large hernia plug into the preperitoneal space and secured it with the same set 2-0 PDS garcia tures with good flattening of the mesh. I then digitized the mesh and found it to be in good anatomi c position. The preperitoneal space splayed out quite well. I then ligated the hernia sac and sent off for pathologic examination. I then closed the residual hernia sac over the top of the hernia plu g. At this point, I then sized the hernia patch for the deep inguinal ring and secured it to the pub ic tubercle on the medial aspect using the same set 2-0 PDS and on the medial lateral shelving edge o f the inguinal ligament and on the internal oblique aponeurosis. After this was secured, I irrigated the area and found the plug to be in good anatomic position with reconstitution of the floor of the inguinal canal. At this point, the spermatic cord and structures were inspected and found to be in g ood position, and I then reduced the testicle back to anatomic position and closed the external obliq ue aponeurosis using a running 3-0 Vicryl suture. I irrigated the subcutaneous tissues and closed th e Camper's fat and Elvia's fascia en bloc using a running 3-0 Vicryl suture and closed the skin with interrupted deep dermal plane. The deep dermal plane was closed with 3-0 Vicryl and the skin was th en closed with 4-0 Monocryl in running fashion. Dermabond placed over top. The patient tolerated th e procedure well without evidence of complication and transferred to PACU in good condition. All counts were correct at the end of the case. MARIA DEL ROSARIO/CAROLA Voice ID: [id number] Report ID: [id number]
[2020-10-05 21:33] VITALS: BP 147/85
== END | disposition home or self-care (01) ==
LOC: OR 11:40
PROVIDERS: ATTEND Surgery
PROC: 0YU60JZ Supplement Left Inguinal Region with Synthetic Substitute, Open Approach (ICD-10-PCS; principal; 2020-10-05 12:30)
DX: K40.30 Unilateral inguinal hernia, with obstruction, without gangrene, not specified as recurrent (principal); Z20.822 Contact with and (suspected) exposure to COVID-19
CPT/HCPCS: 88302; 49507; U0003; J2704; J3010 ×2; J1100; J2175; J1170 ×2; J2710; J0690; J7120 ×3; J2405 ×3; J2250

== ENCOUNTER 2022-03-10 09:48 | Emergency (ER) | payer OTHER ==
--- OUTSIDE RECORDS SUMMARY | 2022-03-10 09:52 | XMS REPORT | Continuity of Care Document ---
:1955 Author Organization [facility] t Address [address] [place]. [address] [place] [address] Care Team Providers Name Role Phone Eugenie Summers MD, Orlando Rome Primary Care Physician [phone] Gray Mao MD Attending Clinician Carline Callahan MA Attending Clinician Unavailable Leroy Telles MD Attending Clinician Jessica Portillo MD Attending Clinician Jeannette Burt MA Attending Clinician Unavailable Alex Almendarez MD Attending Clinician Airam Gunn MA Attending Clinician Unavailable Say Orozco RN Attending Clinician Unavailable Orlando Traore MD Attending Clinician Provider, Unknown Attending Clinician Unavailable Bree Sanchez Attending Clinician Rogelio ABAD, Alejandra TAPIA Attending Clinician Cesia Attending Clinician Unavailable LEROY TELLES Admitting Clinician Unavailable MD YO JONES Admitting Clinician Unavailable Cesia Admitting Clinician Unavailable Payers Payer Name Policy Type Policy Number Effective Date Expiration Date Kd [facility] [id number] 2019 00:00:00 Problems Condition Condition Condition Status Onset Resolution Last Treating Co mments Source Name Details Category Date Date Treatment Clinician Date 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 Added automatic ally from request for surgery [id number] Localized Localized Disease Active Overview: [facility] osteoarthr osteoarthr 4-[address] itis of itis of 00:00: g of this Hospi ta right knee right knee 00 note l might be different from the original. Added automatic ally from request for surgery [id number] Tinnitus Tinnitus Disease Active Metho di of both of both 3-28 st ears ears 00:00: Hospita 00 l SNHL SNHL Disease Active [facility] (sensory-n (sensory-n 3-11 st eural eural 00:00: Hospita hearing hearing 00 l loss), loss), asymmetric asymmetric al al Dizziness Dizziness Disease Active Met hodi and and 3-11 st giddiness giddiness 00:00: Hosp mohsen 00 l Allergies, Adverse Reactions, Alerts Allergy Allergy Status Severity Reaction(s) Onset Inactive Treating Comm ents Source Name Type Date Date Clinician Sulfa Propensi Active Other (See 2020-04 unknown Met [facility] (Sulfona ty to Comments) 2 reaction, st mide adverse 00:00: had it Hospita Antibiot reaction 00 when he l ics) s to was a drug young child Family History Family Member Diagnosis Comments Start Date Stop Date Source Natural father Cancer [facility] Maternal grandfather Diabetes [facility] Maternal grandmother Diabetes [facility] Natural mother Cancer [facility] Natural mother Stroke [facility] Social History Social Habit Start Date Stop Date Quantity Comments Source Alcohol intake 2022-01-22 2022-01-22 Current drinker [facility] dist 00:00:00 00:00:00 of alcohol Hospital (finding) Tobacco use and 2022-01-17 2022-01-17 Smokeless tobacco Me thodist exposure 00:00:00 00:00:00 non-user Hospital Tobacco Comment 2022-01-17 2022-01-[address] [facility] 00:00:00 00:00:00 around smoke. Hospital Alcohol Comment 2021-07-07 2021-07-07 Wine with dinner [facility] 00:00:00 00:00:00 Hospital Sex Ass[birth year] At [birth year] [facility] 00:[facility]00 [facility] Smoking Status Start Date Stop Date Source Never smoked tobacco [facility] Medications Ordered Filled Start Stop Current Ordering Indication Dosage Frequency Signature Comments Components Source Medication Medication Date Date Medication? Clinician (SIG) Name Name vit Yes Take by [facility] C/E/zinc 9-[address] ox/edil/lut 13:14: Hospit a /zeax 10 l (ICAPS AREDS2 ORAL) topiramate Yes [id number] 25mg Q.5D Take 1 [facility] (Topamax) 9-20 tablet (25 st 25 MG 00:00: mg total) Hospita tablet 00 by mouth 2 l (two) times a day. methazolAMI Yes [id number] 50mg Q.5D Take 1 [facility] DE 9-20 tablet (50 st (NEPTAZANE) 00:00: mg total) H ospita 50 MG 00 by mouth 2 l tablet (two) times a day. ubrogepant Yes [id number] 100mg Q24H Take 1 [facility] (Ubrelvy) 9-[address] 100 mg 00:00: (100 mg Hospita tablet 00 total) by l tablet mouth daily as needed (severe headaches) . Take it at the early onset, may take 2nd one two hours after topiramate 2021- No [id number] 25mg Q.5D Take 1 [facility] (Topamax) 8-17 09-20 tablet (25 st 25 MG 00:00: 00:00 mg total) Hospit a tablet 00 :00 by mouth 2 l (two) times a day. ubrogepant 2021- No [id number] 100mg Q24H Take 1 [facility] (Ubrelvy) 8-17 09-[address] 100 mg 00:00: 00:00 (100 mg Hospita tablet 00 :00 total) by l tablet mouth daily as needed (severe headaches) . Take it at the early onset, may take 2nd one two hours after methazolAMI 2021- No [id number] Take one [facility] DE 12-[address] (NEPTAZANE) 00:00: 00:00 for one Ho spita 50 MG 00 :00 week, then l tablet take one in morning and early afternoon, continue traMADoL 2021- [place] [id number] 50mg Q4H Take 1 Metho di (ULTRAM) 50 10-1425 tablet (50 s t mg tablet 00:00: 04:59 mg total) Ho spita 00 :00 by mouth l every 4 (four) hours as needed for moderate pain for up to 7 [place] [id number] 1{tbl} Q4H Take 1 [facility] -acetaminop 10-[address] hen (NORCO) 00:00: 04:59 mouth Hosp mohsen 5-325 mg 00 :00 every 4 l per tablet (four) hours as needed for moderate pain for up to 7 days .acute pain. Max Daily Amount: 6 tablets ubrogepant No [id number] 100mg Q24H Take 1 [facility] (Ubrelvy) 10-[address] 100 mg 00:00: 00:00 (100 mg Hospita tablet 00 :00 total) by l tablet mouth daily as needed (severe headaches) . Take it at the early onset, may take 2nd one two hours after topiramate 2021- No [id number] 25mg Q.5D Take 1 [facility] (Topamax) 10-11 tablet (25 st 25 MG 00:00: 00:00 mg total) Hospit a tablet 00 :00 by mouth 2 l (two) times a day. celecoxib No 200mg QD Take 1 Meth jayson (CeleBREX) 09-[address] 200 MG 00:00: 04:59 (200 mg Hospita capsule 00 :00 total) by l mouth daily for 30 days. aspirin 2021- No 81mg Q.5D Take 1 [facility] (ECOTRIN) 6-02 07-03 tablet (81 st 81 MG 00:00: 04:59 mg total) Hospit a enteric 00 :00 by mouth 2 l coated (two) tablet times a day for 30 days. docusate 2021- No 100mg Q.5D Take 1 Metho di sodium 09-29-[address] (Colace) 00:00: 04:59 (100 mg Hospi ta 100 MG 00 :00 total) by l capsule mouth 2 (two) times a day as needed for constipati on for up to 30 days. HYDROcodone 2021- No [id number] 1{tbl} Q6H Take 1 [facility] -acetaminop 09-29 06-[address] hen (NORCO) 00:00: 04:59 mouth Hosp mohsen 10-325 mg 00 :00 every 6 l per tablet (six) hours as needed for severe pain or moderate pain (Post Op Pain) for up to 10 days .acute pain. Max Daily Amount: 4 tablets traMADoL 2021- No [id number] 50mg Q4H Take 1 Metho di (ULTRAM) 50 09-29 06-10 tablet (50 s t mg tablet 00:00: 04:59 mg total) Ho spita 00 :00 by mouth l every 4 (four) hours as needed for moderate pain for up to 7 days .acute pain. baclofen Yes as needed. Met hodi (LIORESAL) 5-25 st 10 MG 00:00: Hospita tablet 00 l topiramate 2021- No [id number] Take one [facility] (Topamax) 08-24-[address] 25 MG 00:00: 00:00 for one Hospita tablet 00 :00 week, then l take one twice a day ubrogepant 2021- No [id number] 100mg Q24H Take 1 [facility] (Ubrelvy) 08-24-[address] 100 mg 00:00: 00:00 (100 mg Hospita tablet 00 :00 total) by l tablet mouth daily as needed (severe headaches) . Take it at the early onset, may take 2nd one two hours after albuterol Yes 2{puff} Q4H Inhale 2 M ethodi (PROAIR 4-[address] HFA) 90 00:00: every 4 Hospita mcg/actuati 00 (four) l on inhaler hours as needed. simvastatin Yes 40mg QD Take 40 mg [facility] (ZOCOR) 40 4-[address] mg tablet 00:00: nightly. Hosp mohsen 00 l magnesium Yes 400mg Q.5D Take 1 Metho di oxide 400 3-[address] mg 00:00: (400 mg Hospita magnesium 00 total) by l tablet mouth 2 (two) times a day. sertraline Yes 50mg QD Take 50 mg M ethodi (ZOLOFT) 50 2-[address] MG tablet 00:00: every Hospita 00 morning. l losartan Yes 50mg QD Take 50 mg Met hodi (COZAAR) 50 1-[address] MG tablet 00:00: every Hospita 00 morning. l traZODone 2021- No [facility] (DESYREL) 1-14 04-18 st 100 MG 00:00: 00:00 Hospita tablet 00 :00 l traZODone Yes 100mg QD Take 100 Met hodi (DESYREL) 1-[address] 100 MG 00:00: mouth Hospita tablet 00 nightly. l cycloSPORIN 2019-04 Yes 1[drp] QD Administer [facility] E 2-[address] (Restasis) 00:00: both eyes Ho spita 0.05 % 00 nightly. l ophthalmic emulsion simvastatin 2017-04 No Metho di 40 mg/5 mL 05-11 st (8 mg/mL) 00:00: 00:00 Hospita suspension 00 :00 l traMADoL 2021- No as needed. Me thodi 100 mg 10-09 st tablet 00:00: 00:00 Hospita 00 :00 l Immunizations Ordered Immunization Filled Immunization Date Status Commen ts Source Name Name PFIZER COVID-19 MRNA 2021-04-02 Completed Meth odist VACCINATION 00:00:00 [facility] COVID-19 2020-07-23 Completed Methodis t MRNA VACCINATION 00:00:00 [facility] COVID19 2020-06-24 Completed Method[facility] t MRNA VACCINATION 00:00:00 Hospital Vital Signs Vital Name Observation Time Observation Value Comments Source Systolic blood 2022-01-17 18:13:00 129 mm[Hg] [facility] pressure Diastolic blood 2022-01-17 18:13:00 88 mm[Hg] [facility] pressure Heart rate 2022-01-17 18:13:00 77 /min [facility] Body temperature 2022-01-17 18:13:[address] [facility] Respiratory rate 2022-01-17 18:13:00 16 /min [facility] Body height 2022-01-17 18:13:00 188 cm [facility] Body weight 2022-01-17 18:13:00 92.987 kg [facility] BMI 2022-01-17 18:13:00 26.32 kg/m2 [facility] Oxygen saturation in 2021-09-29 12:35:15 96 /min [facility] Arterial blood by Pulse oximetry Procedures Procedure Date / Time Performed Performing Clinician [facility]ly [facility] e XR HIP 2-3 VIEWS RIGHT 2022-01-12 20:25:04 Leroy Telles [facility] XR KNEE 3 VW RIGHT 2022-01-12 19:59:30 Leroy Telles [facility] DURABLE MEDICAL 2021-09-29 13:43:51 Leroy Telles [facility] EQUIPMENT HEMOGLOBIN & HEMATOCRIT 2021-09-29 08:57:00 Elfego [facility] BASIC METABOLIC PANEL 2021-09-29 08:57:00 Leroy Telles [facility] ESTIMATED GFR 2021-09-29 08:57:00 Leroy Telles [facility] XR KNEE 1 OR 2 VW RIGHT 2021-09-28 21:39:21 Leroy Telles [facility] POC GLUCOSE 2021-09-28 21:17:00 Leroy Telles [facility] MI AN ELECTIVE 2021-09-28 19:04:00 Marbin Nails ospital SUPRAGLOTTIC AIRW[facility] HC NERVE BLOCK INJ OTHER 2021-09-28 18:56:08 Alex Almendarez [facility] PERIPHERAL ARTHROPLASTY, KNEE, 2021-09-28 18:56:00 Leroy Telles [facility] TOTAL POC GLUCOSE 2021-09-28 17:18:00 Leroy Telles [facility] SURGICAL PATHOLOGY 2021-09-28 13:51:[address] [facility] REQUEST COVID-19 QUALITATIVE 2021-09-23 21:49:00 Leroy Telles [facility] RT-PCR URINE CULTURE 2021-09-23 21:20:00 [facility] URINALYSIS SCREEN AND 2021-09-23 21:20:00 [facility] MICROSCOPY, WITH REFLEX TO CULTURE IR LUMBAR PUNCTURE 2021-09-22 17:14:00 Daylin, [facility] CSF CULTURE 2021-09-22 17:05:00 Daylin, [facility] spital GRAM STAIN 2021-09-22 17:05:00 Daylin, [facility] spital GLUCOSE LEVEL, CSF 2021-09-22 17:05:00 Daylin, [facility] PROTEIN, CSF 2021-09-22 17:05:00 Daylin, [facility] spital CSF CELL COUNT WITH 2021-09-22 17:05:00 Daylin, [facility] DIFFERENTIAL CT HEAD WO CONTRAST 2021-09-13 14:58:52 Daylin, [facility] MRI CERVICAL SPINE WO 2021-09-01 23:03:00 Daylin, [facility] CONTRAST MRI BRAIN VENOGRAM 2021-09-01 22:45:00 Daylni, [facility] MRA HEAD WO CONTRAST 2021-09-01 22:30:00 [facility], [facility] XR PELVIS 1 OR 2 VW 2021-08-15 14:32:58 Leroy Telles [facility] XR KNEE 4+ VW RIGHT 2021-08-15 14:30:03 Leroy Telles [facility] MRI BRAIN W WO CONTRAST 2021-04-08 14:10:[address] [facility] Plan of Care Planned Activity Planned Date Details Comments Source Future Scheduled 2022-02-28 HEPATITIS B VACCINES [facility] Test 17:31:29 (1 of 3 - 3-dose series) [code = HEPATITIS B VACCINES (1 of 3 - 3-dose series)] Future Scheduled 2022-02-28 Hepatitis C screening [facility] Test 17:31:29 (procedure) [code = [id number]] Future Scheduled 2022-02-28 COLONOSCOPY SCREENING [facility] Test 17:31:29 [code = COLONOSCOPY SCREENING] Future Scheduled 2022-02-28 SHINGLES VACCINES ([facility] Test 17:31:29 of 2) [code = SHINGLES VACCINES (1 of 2)] Future Scheduled 2022-02-28 65+ PNEUMOCOCCAL [facility] Test 17:31:29 VACCINE (1 - PCV) [code = 65+ PNEUMOCOCCAL VACCINE (1 - PCV)] Future Scheduled 2022-02-28 COVID-19 VACCINE (4 - [facility] Test 17:31:29 Booster for Moderna series) [code = COVID-19 VACCINE (4 - Booster for Moderna series)] Future Scheduled 2022-02-28 INFLUENZA VACCINE [facility] Hospital Test 17:31:29 [code = INFLUENZA VACCINE] Encounters Start End Encounter Admission Attending Care Care Encounter Source Date/Time Date/Time Type Type Clinicians Facility Department ID 2022-01-17 2022-01-17 Office Gray Mao 1.2.840.1 [id number] [facility] 13:00:00 14:13:[address] 3.430.2.7 Hospit a .3.397082 l .8 2022-01-17 2022-01-17 Telephone [place], 1.2.840.1 [id number] [facility] 00:00:00 00:00:[address] 3.430.2.7 Hospit a .3.864904 l .8 2022-01-17 2022-01-17 Travel 1.2.840.1 1.2.106.161 [id number] [facility] 00:00:00 00:00:[address] 3.430.2.7 0.2.7.3.698 Ho spita .3.360380 084.8 l .8 2022-01-17 2022-01-17 Outpatient GRAY MAO [facility] [id number] [facility] 00:00:[address] 2022-01-12 2022-01-12 Office Elfego, 1.2.840.1 [id number] [facility] 14:30:00 14:45:00 Visit Leroy 68148.1.[address] [place] 3.430.2.7 Hospit a .3.348137 l .8 2022-01-12 2022-01-12 Travel 1.2.840.1 1.2.864.972 [id number] [facility] 00:00:00 00:00:[address] 3.430.2.7 0.2.7.3.698 Ho spita .3.346803 084.8 l .8 2022-01-12 2022-01-12 [facility] [id number] [facility] 00:00:00 00:00:[address] LEROY [address] 2022-01-12 2022-01-12 Outpatient [facility] [id number] [facility] 00:00:00 00:00:00 LEROY [address] 2022-01-12 2022-01-12 Outpatient [facility] [id number] [facility] 00:00:00 00:00:00 LEROY [address] 2021-12-29 2021-12-29 [address] [facility], 1.2.840.1 [id number] [facility] 00:00:00 00:00:00 Jessica Vasquez 04652.1.1 026 s t 3.430.2.7 Hospit a .3.345939 l .8 2021-12-20 2021-12-20 Travel 1.2.840.1 1.2.520.232 2492 [id number] [facility] 00:00:00 00:00:[address] 3.430.2.7 0.2.7.3.698 Ho spita .3.502413 084.8 l .8 2021-12-14 2021-12-14 TelemedicGray Dykes 1.2.840.1 [id number] [facility] 10:20:00 11:00:[address] 3.430.2.7 Hospit a .3.777964 l .8 2021-12-14 2021-12-14 Outpatient GRAY MAO [facility] [id number] [facility] 00:00:00 00:00:[address] 2021-10-27 2021-10-27 Telephone Javed 1.2.840.1 [id number] [facility] 00:00:00 00:00:[address] 3.430.2.7 Hospit a .3.267038 l .8 2021-10-26 2021-10-26 Telephone Gray Mao 1.2.840.1 [id number] [facility] 00:00:00 00:00:[address] 3.430.2.7 Hospit a .3.812014 l .8 2021-10-24 2021-10-24 Telephone Gray Mao 1.2.840.1 [id number] [facility] 00:00:00 00:00:[address] 3.430.2.7 Hospit a .3.009624 l .8 2021-10-18 2021-10-18 Telephone DaylinArabella daviescielo 1.2.840.1 [id number] 21 [id number] [facility] 00:00:00 00:00:[address] 3.430.2.7 Hospit a .3.856166 l .8 2021-10-14 2021-10-14 Office Elfego 1.2.840.1 [id number] [facility] 13:15:00 13:30:00 Visit Leroy 46571.1.[address] [place] 3.430.2.7 Hospit a .3.697408 l .8 2021-10-14 2021-10-14 Outpatient ELFEGO [facility] [id number] [facility] 00:00:00 00:00:00 LEROY [address] 2021-10-112021-10-11 Office Gray Mao 1.2.840.1 [id number] [facility] 14:00:00 15:06:[address] 3.430.2.7 Hospit a .3.012673 l .8 2021-10-11 2021-10-11 Outpatient GRAY MAO [facility] [id number] [facility] 00:00:00 00:00:[address] 2021-10-11 2021-10-11 Travel 1.2.840.1 1.2.612.082 [id number] [id number] [facility] 00:00:00 00:00:[address] 3.430.2.7 0.2.7.3.698 Ho spita .3.295361 084.8 l .8 2021-09-28 2021-09-29 Hospital Elfe[place], 1.2.840.1 [id number] [facility] 10:58:00 15:56:00 Encounter Leroy 26214.1.[address] [place] 3.430.2.7 Hospit a .3.345613 l .8 2021-09-28 2021-09-29 Outpatient [facility] [id number] [facility] 00:00:00 00:00:00 LEROY [address] 2021-09-28 2021-09-28 Surgery [facility], 1.2.840.1 [id number] [facility] 14:30:00 17:00:[address] [place] 3.430.2.7 Hospit a .3.660969 l .8 2021-09-28 2021-09-28 [facility] 1.2.840.1 [id number] [facility] 13:56:00 16:30:00 Event Alex 16361.1.[address] [place] 3.430.2.7 Hospit a .3.783614 l .8 2021-09-28 2021-09-28 Travel 1.2.840.1 1.2.369.667 [id number] [id number] [facility] 00:00:00 00:00:[address] 3.430.2.7 0.2.7.3.698 Ho spita .3.230612 084.8 l .8 2021-09-23 2021-09-23 Pre-Admiss Elfego, 1.2.840.1 [id number] [facility] 09:30:00 10:30:00 ion Leroy 37006.1.[address] Testing [place] 3.430.2.7 Hospit a .3.885766 l .8 2021-09-23 2021-09-23 Outpatient ELFEGO [facility] [id number] [facility] 00:00:00 00:00:00 LEROY [address]jandro [facility] 2021-09-22 2021-09-22 [facility] Gray Mao 1.2.840.1 [id number] [facility] 10:13:35 23:59:[address] 3.430.2.7 Hospit a .3.021898 l .8 2021-09-22 2021-09-22 Outpatient DAYLINGRAY Davies [facility] [id number] [facility] 00:00:00 00:00:[address] 2021-09-22 2021-09-22 Travel 1.2.840.1 1.2.782.146 [id number] [facility] 00:00:00 00:00:[address] 3.430.2.7 0.2.7.3.698 Ho spita .3.266314 084.8 l .8 2021-09-22 2021-09-22 Orders Gunn, 1.2.840.1 [id number] [facility] 00:00:00 00:00:00 Only Aminael 78860.1.[address] 3.430.2.7 Hospit a .3.956847 l .8 2021-09-19 2021-09-19 Telephone Ernesto, 1.2.840.1 [id number] [id number] [facility] 00:00:00 00:00:[address] 3.430.2.7 Hospit a .3.490893 l .8 2021-09-14 2021-09-14 Telephone Eugenie, 1.2.840.1 [id number] [facility] 00:00:00 00:00:00 Orlando Rome [address]118.1.[address] 3.430.2.7 Hospit a .3.710094 l .8 2021-09-13 2021-09-13 [facility] 1.2.840.1 [id number] Method[facility] 09:00:00 23:59:[address] 3.430.2.7 Hospit a .3.274650 l .8 2021-09-13 2021-09-13 Outpatient [facility] [id number] [facility] 00:00:00 00:00:[address] 2021-09-12 2021-09-12 [facility] 1.2.840.1 [id number] [facility] 13:00:00 14:36:[address] 3.430.2.7 Hospit a .3.953069 l .8 2021-09-12 2021-09-12 Outpatient [facility] [id number] [facility] 00:00:00 00:00:[address] 2021-09-12 2021-09-12 Travel 1.2.840.1 1.2.122.823 [id number] [id number] [facility] 00:00:00 00:00:[address] 3.430.2.7 0.2.7.3.698 Ho spita .3.319137 084.8 l .8 2021-09-01 2021-09-01 [facility] 1.2.840.1 [id number] [facility] 16:18:15 23:59:[address] 3.430.2.7 Hospit a .3.068937 l .8 2021-09-01 2021-09-01 [facility] Gray Mao 1.2.840.1 [id number] [facility] 16:17:56 16:17:[address] 3.430.2.7 Hospit a .3.523413 l .8 2021-09-01 2021-09-01 [facility] Gray Mao 1.2.840.1 [id number] [facility] 16:17:35 16:17:[address] 3.430.2.7 Hospit a .3.038508 l .8 2021-09-01 2021-09-01 Outpatient GRAY MAO [facility] [id number] [facility] 00:00:00 00:00:[address] 2021-09-01 2021-09-01 Travel 1.2.840.1 1.2.110.737 [id number] [facility] 00:00:00 00:00:[address] 3.430.2.7 0.2.7.3.698 Ho spita .3.193985 084.8 l .8 2021-09-01 2021-09-01 Outpatient GRAY MAO [facility] [id number] [facility] 00:00:00 00:00:[address] 2021-09-01 2021-09-01 Outpatient GRAY MAO [facility] [id number] [facility] 00:00:00 00:00:[address] 2021-08-24 2021-08-24 Office Gray Mao 1.2.840.1 [id number] [facility] 16:00:00 17:44:[address] 3.430.2.7 Hospit a .3.801247 l .8 2021-08-24 2021-08-24 Travel 1.2.840.1 1.2.173.398 7485 [id number] [facility] 00:00:00 00:00:[address] 3.430.2.7 0.2.7.3.698 Ho spita .3.500560 084.8 l .8 2021-08-24 2021-08-24 Outpatient GRAY MAO [facility] 00:00:00 00:00:[address] 2021-08-17 2021-08-17 Documentat Provider, 1.2.840.1 [id number] [facility] 00:00:00 00:00:00 ion Unknown 68460.1.[address] 3.430.2.7 Hospit a .3.984626 l .8 2021-08-17 2021-08-17 Orders Gunn, 1.2.840.1 [id number] [facility] 00:00:00 00:00:00 Only Aminael 77897.1.[address] 3.430.2.7 Hospit a .3.880662 l .8 2021-08-15 2021-08-15 Office Elfego, 1.2.840.1 [id number] [facility] 09:30:00 10:25:47 Visit Leroy 47565.1.[address] [place] 3.430.2.7 Hospit a .3.464368 l .8 2021-08-15 2021-08-15 Outpatient [facility] [id number] [facility] 00:00:00 00:00:00 LEROY [address] 2021-08-15 2021-08-15 Outpatient [facility] [id number] [facility] 00:00:00 00:00:00 LEROY [address] 2021-08-15 2021-08-15 Outpatient [facility] [id number] [facility] 00:00:00 00:00:00 LEROY [address] 2021-08-09 2021-08-09 Travel 1.2.840.1 1.2.033.273 [id number] [facility] 00:00:00 00:00:[address] 3.430.2.7 0.2.7.3.698 Ho spita .3.311519 084.8 l .8 2021-07-25 2021-07-25 Office [facility], 1.2.840.1 [id number] 0308 [facility] 15:30:00 16:24:57 Visit Jessica Vasquez 79068.1.1 455 s t 3.430.2.7 Hospit a .3.175273 l .8 2021-07-25 2021-07-25 Travel 1.2.840.1 1.2.107.644 5737 [id number] [facility] 00:00:00 00:00:[address] 3.430.2.7 0.2.7.3.698 Ho spita .3.078019 084.8 l .8 2021-07-25 2021-07-25 Outpatient [facility], [facility] [id number] [facility] 00:00:00 00:00:00 JESSICA [address] 2021-07-11 2021-07-11 Procedure 1.2.840.1 [id number] [id number] [facility] 13:00:00 14:55:[address] 3.430.2.7 Hospit a .3.857838 l .8 2021-07-11 2021-07-11 Travel 1.2.840.1 1.2.426.608 2482 693306 [facility] 00:00:00 00:00:[address] 3.430.2.7 0.2.7.3.698 Ho spita .3.292971 084.8 l .8 2021-07-11 2021-07-11 Outpatient [facility] [id number] 850 [facility] 00:00:00 00:00:[address] 2021-07-07 2021-07-07 Office [facility], 1.2.840.1 [id number] Methodi 16:15:00 17:00:13 Visit Jessica Vasquez 62309.1.1 104 s t 3.430.2.7 Hospit a .3.218551 l .8 2021-07-07 2021-07-07 Office Barry, 1.2.840.1 [id number] Methodi 15:30:00 16:52:27 Visit Bree [address]79.1.[address] 3.430.2.7 Hospit a .3.010944 l .8 2021-07-07 2021-07-07 Travel 1.2.840.1 1.2.493.726 [id number] Methodi 00:00:00 00:00:[address] 3.430.2.7 0.2.7.3.698 Ho spita .3.919497 084.8 l .8 2021-07-07 2021-07-07 Outpatient [facility] [id number] 00:00:00 00:00:[address] 2021-07-07 2021-07-07 Outpatient [facility] [id number] [facility] 00:00:00 00:00:00 JESSICA [address] 2021-03-31 2021-03-31 [facility], 1.2.840.1 [id number] Methodi 13:33:48 23:59:00 Encounter Alejandra [address]996.1.[address] 3.430.2.7 Hospit a .3.993187 l .8 2021-03-31 2021-03-31 Travel 1.2.840.1 1.2.139.505 [id number] Methodi 00:00:00 00:00:[address] 3.430.2.7 0.2.7.3.698 Ho spita .3.389482 084.8 l .8 2021-03-31 2021-03-31 Outpatient [facility] [id number] [facility] 00:00:00 00:00:00 [address]AN[address]A [address] 2021-03-16 2021-03-16 Travel 1.2.840.1 1.2.897.567 [id number] Methodi 00:00:00 00:00:[address] 3.430.2.7 0.2.7.3.698 Ho spita .3.233895 084.8 l .8 2021-03-16 2021-03-16 Transcribe Rogelio, Alo.2.840.1 [id number] Methodi 00:00:00 00:00:00 Orders Alejandra [address]697.1.[address] 3.430.2.7 Hospit a .3.586218 l .8 2020-01-09 2020-01-09 Outpatient Broussard_D [facility]FP VF 114 [id number] [facility] 12:13:00 12:13:00 [id number] Family Practic e Results Test Description Test Time Test Comments Results Result Comments Source Zoraida Barker 2021-10-10 21:45:39 Test Item Value Reference Range Interpretation Comme nts SUPPLIER NAME (test code = 6415) [facility] SUPPLIER PHONE (test code = 6416) ORDER STATUS (test code = 6417) Delivery Successful DELIVERY NOTE (test code = 6419) REQUESTED DELIVEY DATE (test code = 6420) 09/29/2021 ITEM DESCRIPTION (test code = 6423) Zoraida Barker, Yesenia Qty: 1 ACTUAL DELIVERY DATE (test code = 6422) [facility] [id number] 14:43:14 Test Item Value Reference Range Interpretation Comments Case number (test code = [id number]) Surgical pathology See link below for report (test code = PDF Lab Report [id number]) Result status (test code This is Final Report = [id number]) for [id number] [facility] [id number] 21:20:00 Test Item Value Reference Range Interpretation Comments POC glucose (test code = 119 mg/dL 65-99 H Ope rator Name: [id number]) Veliz Micchapincito Wagner ID: [id number] Lab Interpretation (test Abnormal code = 35851-0) [facility] [place], [place] [id number] 23:08:00 Test Item Value Reference Range Interpretation Comments Urine culture (test SEE COMMENT Bacteriu abdoulaye screen code = 6299199) negative. [facility] [id number] (COVID-19) RNA [Presence] in Respiratory specimen by ISELA with probe [id number] 22:33:13 Test Item Value Reference Range Interpretation Comments SARS-CoV-2 (COVID-19) RNA Not detected [Presence] in Respiratory specimen by ISELA with probe detection (test code = 63482-3) Whether patient is employed in a Unknown healthcare setting (test code = 40972-1) Whether the patient has symptoms Unknown related to condition of interest (test code = 41666-9) Whether the patient was Unknown hospitalized for condition of interest (test code = 96286-2) Whether the patient was admitted Unknown to intensive care unit (ICU) for condition of interest (test code = 14719-3) Whether patient resides in a Unknown congregate care setting (test code = 11071-1) status (test code = Unknown 11072-4) Date and time of symptom onset Unknown (test code = 09332-5) BETH BROWN
[2022-03-10 10:42] LABS: Urine Blood Negative (Negative); Urine Glucose Negative (Negative); Urine Protein Negative (Negative); Urine Specific Gravity >=1.030 (1.005-1.030); Urine pH 5.5 (5.0-7.0)
[2022-03-10 10:46] LABS: Absolute Lymphocytes (CBC) 1.6 K/uL (0.7-4.9); Hematocrit 46.2 % (39.6-49.0); Lymphocytes % 33.4 % (15.3-44.8); MPV 8.1 fL (7.6-11.3); RBC Red Blood Cell Count 5.19 M/uL (4.33-5.43)
[2022-03-10] MEDS ORDERED: MORPHINE 2 MG/ML SYR ONE (11:13)
[2022-03-10] MEDS ORDERED: NA CHLORIDE 0.9% 1,000 ML ONE (11:13)
[2022-03-10] MEDS ORDERED: KETOROLAC 30 MG/ML INJ ONE (11:13)
[2022-03-10 11:15] LABS: Albumin 3.9 g/dL (3.4-5.0); Bilirubin Total 0.7 mg/dL (0.2-1.0); Potassium 3.9 mmol/L (3.5-5.1); Protein, Total 7.7 g/dL (6.4-8.2)
--- NOTE | 2022-03-10 11:30 | RAD REPORT ---
EXAM DESCRIPTION: CT - Abdomen Pelvis Wo Contrast - 03/10/2022 11:10 am CLINICAL HISTORY: Abdominal pain. Flank pain, kidney stone suspected COMPARISON: No comparisons TECHNIQUE: CT imaging of the abdomen and pelvis was performed without contrast. Solid organ, bowel a nd vascular assessment is limited due to lack of IV and oral contrast. All CT scans are performed using dose optimization technique as appropriate and may include automated exposure control or mA/KV adjustment according to patient size. FINDINGS: The lower lung yuan are clear.Small gallstone in the gallbladder. The liver, spleen, pancreas, adrenal glands and kidneys are within normal limits for a limited non-co ntrast examination. No bowel obstruction, free air, free fluid or abscess. Sigmoid diverticulosis is present. Moderate re tained stool in the rectosigmoid colon. The appendix is normal. Small to moderate fat containing righ t inguinal hernia. Mild lower lumbar degenerative changes. IMPRESSION: No evidence of tract stone or hydronephrosis. Diverticulosis is seen in the colon particularly the left lower quadrant and pelvic sigmoid colon. No evidence of diverticulitis. Moderate fat containing right inguinal hernia. A limited non-contrast examination was performed as detailed.
--- NOTE | 2022-03-10 11:46 | ER ---
Nurse's Notes [facility] Name: Andrés Epperson Age: 66 yrs Sex: Male : 1955 Arrival Date: 03/10/2022 Time: 09:49 Bed 11 Private MD: Orlando Traore Diagnosis: Low back pain;Diverticulosis of intestine, part unspecified, without perforation or abscess with bleeding Presentation: 03/10 09:56 Chief complaint: Patient states: R low back pain that has been ongoing x 3 days. ss Coronavirus screen: Client denies travel out of the [place] in the last 14 days. Ebola Screen: Patient denies exposure to infectious person. Patient denies travel to an Ebola-affected area in the 21 days before illness onset. Initial Sepsis Screen: Does the patient meet any 2 criteria? No. Patient's initial sepsis screen is negative. Does the patient have a suspected source of infection? No. Patient's initial sepsis screen is negative. Risk Assessment: Do you want to hurt yourself or someone else? Patient reports no desire to harm self or others. Onset of symptoms was March 07, 2022. 09:56 Method Of Arrival: Ambulatory ss 09:56 Acuity: WAYNE 3 ss Historical: - Allergies: 09:58 Sulfa (Sulfonamide Antibiotics); ss - Home Meds: 09:58 Simvastatin Oral [Active]; losartan oral [Active]; sertraline oral [Active]; ss - PMHx: 09:58 Arthritis; Pneumonia; Hypercholesterolemia; Hypertensive disorder; migraines; ss Vestibular tumor; - PSHx: 09:58 Kostas knee replacement; Hernia repair; ss - Immunization history:: Client reports receiving the 2nd dose of the Covid vaccine. - Social history:: Smoking status: Patient denies any tobacco usage or history of. Assessment: 12:08 Reassessment: Patient appears in no apparent distress at this time. Patient and/or ss family updated on plan of care and expected duration. Pain level reassessed. Patient is alert, oriented x 3, equal unlabored respirations, skin warm/dry/pink. pain has decreased to 6/10 Patient states feeling better. Vital Signs: 09:56 BP 140 / 93; Pulse 79; Resp 16; Temp 98.0(TE); Pulse Ox 100% on R/A; Weight 91.63 kg; ss Height 6 ft. 3 in. (190.50 cm); Pain 10/; 09:56 Body Mass Index 25.25 (91.63 kg, 190.50 cm) ED Course: 09:49 Patient arrived in ED. am2 09:49 Orlando Traore MD is Private Physician. am2 09:58 Triage completed. ss 09:58 Arm band placed on right wrist. ss 10:04 Hiren Canchola is PHCP. jl9 10:04 Ima Medeiros MD is Attending Physician. jl9 10:32 Inserted saline lock: 20 gauge in right antecubital area, using aseptic technique. ss Blood collected. 10:49 Lindy Briscoe RN is Primary Nurse. 11:12 CT Abd/Pelvis - Without Contrast In Process Unspecified. EDMS 12:07 No provider procedures requiring assistance completed. IV discontinued, intact, ss bleeding controlled, No redness/swelling at site. Pressure dressing applied. Administered Medications: 11:25 Drug: Ketorolac 30 mg Route: IVP; Site: right antecubital; ss 12:07 Follow up: Response: No adverse reaction; Pain is decreased 11:26 Drug: NS 0.9% 1000 ml Route: IV; Rate: 1000 ml; Site: right antecubital; ss 12:07 Follow up: IV Status: Completed infusion; IV Intake: 1000ml 11:26 Drug: morphine 2 mg Route: IVP; Infused Over: 4 mins; Site: right antecubital; ss 12:07 Follow up: Response: No adverse reaction; Pain is decreased ss Intake: 12:07 IV: 1000ml; Total: 1000ml. Outcome: 11:46 Discharge ordered by . jl9 12:07 Discharged to home ambulatory. ss 12:07 Condition: good 12:07 Discharge instructions given to patient, Instructed on discharge instructions, follow up and referral plans. medication usage, Demonstrated understanding of instructions, follow-up care, medications, Prescriptions given X 2. 12:08 Patient left the ED. Signatures: Dispatcher [employer] EDMA Lindy Briscoe RN RN Tina Teixeira am2 Hiren Canchola jl9
--- NOTE | 2022-03-10 11:47 | EDPHYS ---
Physician Documentation [facility] Name: Andrés Epperson Age: 66 yrs Sex: Male : 1955 Arrival Date: 03/10/2022 Time: 09:49 Bed 11 Private MD: Orlando Traore ED Physician Iam Medeiros HPI: 03/10 11:40 This 66 yrs old Male presents to ER via Ambulatory with complaints of Low jl9 Back Pain. 11:40 The patient presents with pain that is acute. The symptoms are located in the low back. jl9 The pain does not radiate. The problem was sustained from unknown cause. Onset: The symptoms/episode began/occurred 3 day(s) ago. Modifying factors: The patient symptoms are alleviated by nothing, the patient symptoms are aggravated by movement. Severity of symptoms: in the emergency department the symptoms a " 3" out of "10". The patient has not experienced similar symptoms in the past. Historical: - Allergies: 09:58 Sulfa (Sulfonamide Antibiotics); ss - Home Meds: 09:58 Simvastatin Oral [Active]; losartan oral [Active]; sertraline oral [Active]; ss - PMHx: 09:58 Arthritis; Pneumonia; Hypercholesterolemia; Hypertensive disorder; migraines; ss Vestibular tumor; - PSHx: 09:58 Kostas knee replacement; Hernia repair; ss - Immunization history:: Client reports receiving the 2nd dose of the Covid vaccine. - Social history:: Smoking status: Patient denies any tobacco usage or history of. ROS: 11:41 Constitutional: Negative for fever, chills, and weight loss, Eyes: Negative for injury, jl9 pain, redness, and discharge, ENT: Negative for injury, pain, and discharge, Neck: Negative for injury, pain, and swelling, Cardiovascular: Negative for chest pain, palpitations, and edema, Respiratory: Negative for shortness of breath, cough, wheezing, and pleuritic chest pain, Abdomen/GI: Negative for abdominal pain, nausea, vomiting, diarrhea, and constipation. 11:41 : Negative for injury, bleeding, discharge, and swelling, MS/Extremity: Negative for injury and deformity, Skin: Negative for injury, rash, and discoloration, Neuro: Negative for headache, weakness, numbness, tingling, and seizure, Psych: Negative for depression, anxiety, suicide ideation, homicidal ideation, and hallucinations, Allergy/Immunology: Negative for hives, rash, and allergies, Endocrine: Negative for neck swelling, polydipsia, polyuria, polyphagia, and marked weight changes, Hematologic/Lymphatic: Negative for swollen nodes, abnormal bleeding, and unusual bruising. 11:41 Back: Positive for pain with movement. Exam: 11:41 Constitutional: This is a well developed, well nourished patient who is awake, alert, jl9 and in no acute distress. Head/Face: Normocephalic, atraumatic. Eyes: Pupils equal round and reactive to light, extra-ocular motions intact. Lids and lashes normal. Conjunctiva and sclera are non-icteric and not injected. Cornea within normal limits. Periorbital areas with no swelling, redness, or edema. ENT: Mucous membranes moist. Neck: Trachea midline, no thyromegaly or masses palpated, and no cervical lymphadenopathy. Supple, full range of motion without nuchal rigidity, or vertebral point tenderness. No Meningismus. Chest/axilla: Normal chest wall appearance and motion. Nontender with no deformity. No lesions are appreciated. Cardiovascular: Regular rate and rhythm with a normal S1 and S2. No gallops, murmurs, or rubs. Normal PMI, no JVD. No pulse deficits. Respiratory: Lungs have equal breath sounds bilaterally, clear to auscultation and percussion. No rales, rhonchi or wheezes noted. No increased work of breathing, no retractions or nasal flaring. Abdomen/GI: Soft, non-tender, with normal bowel sounds. No distension or tympany. No guarding or rebound. No evidence of tenderness throughout. 11:41 Skin: Warm, dry with normal turgor. Normal color with no rashes, no lesions, and no evidence of cellulitis. MS/ Extremity: Pulses equal, no cyanosis. Neurovascular intact. Full, normal range of motion. Neuro: Awake and alert, GCS 15, oriented to person, place, time, and situation. Cranial nerves II-XII grossly intact. Motor strength 5/5 in all extremities. Sensory grossly intact. Cerebellar exam normal. Normal gait. Psych: Awake, alert, with orientation to person, place and time. Behavior, mood, and affect are within normal limits. 11:41 Back: pain, that is mild, ROM is painless, normal spinal alignment noted, CVA tenderness, is absent. Vital Signs: 09:56 BP 140 / 93; Pulse 79; Resp 16; Temp 98.0(TE); Pulse Ox 100% on R/A; Weight 91.63 kg; ss Height 6 ft. 3 in. (190.50 cm); Pain 10; 09:56 Body Mass Index 25.25 (91.63 kg, 190.50 cm) MDM: 10:05 Patient medically screened. 9 11:41 Data reviewed: vital signs, nurses notes, lab test result(s), radiologic studies. 9 Counseling: I had a detailed discussion with the patient and/or guardian regarding: the historical points, exam findings, and any diagnostic results supporting the discharge/admit diagnosis, lab results, radiology results, the need for outpatient follow up, to return to the emergency department if symptoms worsen or persist or if there are any questions or concerns that arise at home. Response to treatment: the patient's symptoms have markedly improved after treatment. 03/10 10:05 Order name: CBC with Diff; Complete Time: 10:50 [facility] 03/10 10:05 Order name: CMP; Complete Time: 11:40 [facility] 03/10 10:05 Order name: Lipase; Complete Time: 11:40 [facility] 03/10 10:42 Order name: Urine Dipstick-Ancillary; Complete Time: 10:50 EDMS 03/10 10:54 Order name: CT Abd/Pelvis - Without Contrast; Complete Time: 11:36 [facility] 03/10 10:05 Order name: IV Saline Lock; Complete Time: 10:49 [facility] 03/10 10:05 Order name: Urine Dipstick-Ancillary (obtain specimen); Complete Time: 10:49 [facility] 03/10 10:54 Order name: Labs collected and sent; Complete Time: 10:54 [facility] Administered Medications: 11:25 Drug: Ketorolac 30 mg Route: IVP; Site: right antecubital; ss 12:07 Follow up: Response: No adverse reaction; Pain is decreased 11:26 Drug: NS 0.9% 1000 ml Route: IV; Rate: 1000 ml; Site: right antecubital; ss 12:07 Follow up: IV Status: Completed infusion; IV Intake: 1000ml ss 11:26 Drug: morphine 2 mg Route: IVP; Infused Over: 4 mins; Site: right antecubital; ss 12:07 Follow up: Response: No adverse reaction; Pain is decreased ss Disposition Summary: 03/10/22 11:46 Discharge Ordered Location: Home jl9 Condition: Stable jl9 Diagnosis - Low back pain jl9 - Diverticulosis of intestine, part unspecified, without perforation or abscess with jl9 bleeding Followup: jl9 - With: Private Physician - When: 1 - 2 days - Reason: Recheck today's complaints, Continuance of care, Re-evaluation by your physician Discharge Instructions: - Discharge Summary Sheet jl9 - Acute Back Pain, Adult jl9 - Diverticulosis jl9 - Muscle Strain, [id number] jl9 Forms: - Medication Reconciliation Form jl9 - Thank You Letter jl9 - Antibiotic Education jl9 - Prescription Opioid Use jl9 Prescriptions: - Ibuprofen 800 mg Oral Tablet - take 1 tablet by ORAL route every 8 hours As needed take with food; 30 tablet; jl9 Refills: 0, Product Selection Permitted - Cyclobenzaprine 10 mg Oral Tablet - take 1 tablet by ORAL route every 8 hours As needed; 30 tablet; Refills: 0, jl9 Product Selection Permitted Signatures: Dispatcher [employer] Lindy Arce RN RN Hiren Lee jl9
[2022-03-10 12:21] VITALS: BP 140/93; TEMP 98; O2SAT 100
== END 2022-03-10 12:08 | disposition home or self-care (01) ==
LOC: ER 09:48
DX: K57.30 Diverticulosis of large intestine without perforation or abscess without bleeding (principal); I10 Essential (primary) hypertension; Z88.2 Allergy status to sulfonamides
CPT/HCPCS: 96361; 85025; 36415; 81003; 83690; 80053; 74176; 96375; 96374; 99284; J2270; J7030

== ENCOUNTER 2022-08-24 08:57 | Day surgery (SDC) | payer OTHER ==
[2022-08-22 11:45] LABS: Potassium 4.1 mEq/L (3.5-5.1)
--- NOTE | 2022-08-23 04:52 | EKG ---
Test Date: 2022-08-22 Test Time: 11:01:11 Family Intervention Specialist: PAZ MEASUREMENT RESULTS: Intervals: Rate: 74 [place]: 156 QRSD: 82 QT: 364 QTc: 404 [place]: P: 35 AZ: 156 QRS: 45 T: 92 INTERPRETIVE STATEMENTS: Normal sinus rhythm Nonspecific ST and T wave abnormality Abnormal ECG Compared to ECG 06/02/2018 17:43:53 ST (T wave) deviation now present Myocardial infarct finding no longer present Electronically Signed On 08-23-22 04:51:56 CDT by Radames Nielson
[2022-08-24] MEDS ORDERED: CEFAZOLIN SODIUM 2 GM/VIAL ONE (09:26)
[2022-08-24] MEDS ORDERED: Ringers Lactate 1,000 ML IV ONE ×3 (09:26→14:30)
[2022-08-24] MEDS ORDERED: BUPIVACAINE 0.25% PF 30 ML VIAL ONE (10:00)
[2022-08-24] MEDS ORDERED: propofoL 200 MG/20 ML VIAL IV ONE (10:29)
[2022-08-24] MEDS ORDERED: FENTANYL CITR 100 MCG/2 ML ONE (10:30)
[2022-08-24] MEDS ORDERED: ROCURONIUM 50 MG/5 ML VIAL IV ONE ×2 (10:30→11:32)
[2022-08-24] MEDS ORDERED: MIDAZOLAM HCL 2 MG/2 ML INJ ONE (10:30)
[2022-08-24] MEDS ORDERED: KETOROLAC 30 MG/ML INJ ONE (10:31)
[2022-08-24] MEDS ORDERED: dexAMETHasone 10 MG/ML VIAL ONE ×2 (10:31→11:49)
[2022-08-24] MEDS ORDERED: LIDOCAINE 2% MPF 5 ML VIAL ONE (10:31)
[2022-08-24] MEDS ORDERED: ONDANSETRON 4 MG/2 ML VIAL ONE (10:31)
[2022-08-24] MEDS ORDERED: ROPLVACAINE HCL 20 ML ONE ×2 (10:36→11:50)
[2022-08-24] MEDS ORDERED: ROPIVACAINE HCL 20 ML ONE ×2 (10:37→11:50)
[2022-08-24] MEDS ORDERED: GLYCOPYRROLATE 0.2 MG/ML SYR ONE ×2 (11:44→12:28)
--- NOTE | 2022-08-24 12:12 | P.OP ---
Drum Stenciler: Carmela Aguirre Preoperative diagnosis: RIGHT inguinal Hernia Postoperative diagnosis: RIGHT inguinal Hernia Primary procedure: Open RIGHT inguinal hernia repair with mesh Anesthesia: GETA + Local Estimated blood loss: <5cc Specimen: cord lipoma, hernia contents Findings: indirect inguinal hernia Complications: None Implants: Bard Perfix medium plug and patch Transferred to: Recovery Room Condition: Good
[2022-08-24] MEDS ORDERED: NEOSTIGMINE 1 MG/ML -10 ML VIAL ONE (12:32)
[2022-08-24] MEDS ORDERED: SUGAMMADEX SODIUM 200 MG/2 ML VIAL IV ONE (12:32)
[2022-08-24] MEDS: HYDROMORPHONE HCL 1 MG/ML INJ ONE ×4 (12:55→13:18)
--- NOTE | 2022-08-24 13:48 | OP ---
Date of Procedure: 08/24/2022 Surgeon: Denis Mccullough MD, Preoperative Diagnosis: Right inguinal hernia. Postoperative Diagnosis: Right inguinal hernia. Procedure Performed: Open right inguinal hernia with mesh. Anesthesia: General endotracheal plus local. Estimated Blood Loss: Less than 5 cc. Specimen: Cord lipoma and hernia contents. Findings: Indirect inguinal hernia. Complications: None. Implants: Bard medium PerFix plug and patch hernia repair system. Disposition: The patient was transferred to the recovery room in good condition. Procedure In Detail: After informed consent was obtained, the patient was brought to the operating r oom, prepped and draped in the usual sterile fashion after adequate anesthesia was achieved. I made an inguinal incision down through subcutaneous tissues using a 15 blade. I then used electrocautery to dissect down through Camper fat and Elvia fascia to expose the external oblique aponeurosis, whic h was quite thin and alveolar at this point. I opened it sharply with Metzenbaum scissors and encirc led the spermatic cord structures. There was a quite bit adipose tissue in this area and a cord lipo ma was appreciated. This was removed from the spermatic cord structures and sent off for pathologic examination. I then exposed the hernia sac and removed some preperitoneal fat that was adjacent to t his and firmly entrapped within the hernia sac. I then imbricated the hernia sac and pushed back in the preperitoneal space, sized a medium Bard PerFix on the indirect inguinal hernia at this point, pl aced it in and deployed the mesh system. I then secured circumferentially around the shelving edge u sing 2-0 PDS sutures in an interrupted fashion. I then sized the plug appropriately, placed on the f srikanth of the inguinal canal and secured to the internal oblique aponeurosis as well as the undersurfac e of the inguinal ligament using interrupted 2-0 PDS sutures and securing it to the pubic tubercle as well. After this was completed, I reconstituted the deep inguinal ring, trimmed the mesh appropriat minal, and irrigated the area copiously. At this point, I closed the external oblique aponeurosis in a running fashion using a 3-0 Vicryl suture. I then closed the Camper fat and Elvia fascia with a ru nning 3-0 Vicryl suture. Deep dermal plane was closed with interrupted 3-0 Vicryl suture and the ski n was closed with a 4-0 Monocryl in a running fashion. Dermabond placed over top. The patient rose ated the procedure well without evidence of complication and transferred to PACU in good condition. All counts were correct at the end of the case. MARIA DEL ROSARIO/CAROLA Voice ID: [id number] Report ID: [id number]
[2022-08-24 13:56] VITALS: O2SAT 100
[2022-08-24] MEDS ORDERED: HYDROCODONE/APAP 10/325 TAB ONE (14:06)
[2022-08-24 15:21] VITALS: BP 126/80; TEMP 97.8
== END 2022-08-24 15:46 | disposition home or self-care (01) ==
LOC: OR 08:57
PROVIDERS: ATTEND Surgery
PROC: 0WUF0JZ Supplement Abdominal Wall with Synthetic Substitute, Open Approach (ICD-10-PCS; principal; 2022-08-24 10:30)
DX: K40.90 Unilateral inguinal hernia, without obstruction or gangrene, not specified as recurrent (principal); I10 Essential (primary) hypertension; E78.00 Pure hypercholesterolemia, unspecified
CPT/HCPCS: 93005; 80048; 36415; 88302; 49505; J2704; J2710; J2001; J2250; J3010; J1100 ×2; J1170 ×2; J2405; J7120 ×3